=== PATIENT | female | born 1990 | race Caucasian/White ===

== ENCOUNTER 2017-10-11 07:39 | Outpatient (CLI) | payer OTHER ==
[~2017-10-11 07:39] MED LIST: MUCINEX
== END 2017-10-11 09:09 | disposition home or self-care (01) ==
LOC: LAB 07:39
DX: E78.1 Pure hyperglyceridemia (principal); E03.1 Congenital hypothyroidism without goiter; E10.9 Type 1 diabetes mellitus without complications; R35.8 Other polyuria

== ENCOUNTER 2019-03-31 11:55 | Emergency (ER) | payer OTHER ==
[~2019-03-31] VITALS: Ht 167.6 cm; Wt 62.6 kg
== END 2019-03-31 14:51 | disposition home or self-care (01) ==
LOC: ER 11:55
DX: S80.01XA Contusion of right knee, initial encounter (principal); S50.02XA Contusion of left elbow, initial encounter; S50.01XA Contusion of right elbow, initial encounter; W18.39XA Other fall on same level, initial encounter; Y93.89 Activity, other specified; Y92.89 Other specified places as the place of occurrence of the external cause; Y99.8 Other external cause status

== ENCOUNTER 2021-02-07 01:59 | Inpatient (IN) | payer OTHER ==
[~2021-02-07] VITALS: Ht 167.6 cm; Wt 68.9 kg
[2021-02-07] MEDS ORDERED: PRENATAL TABLE1 EAC1 PO (02:55)
== END 2021-02-09 14:13 | disposition home or self-care (01) | DRG 807 ==
LOC: SURG-SUITE 01:59 → LDR 01:59 → SURG-SUITE 11:08
PROVIDERS: ADMIT Specialist; ATTEND Specialist
PROC: 10E0XZZ Delivery of Products of Conception, External Approach (ICD-10-PCS; principal; 2021-02-07)
PROC: 0W8NXZZ Division of Female Perineum, External Approach (ICD-10-PCS; 2021-02-07)
PROC: 4A1HXFZ Monitoring of Products of Conception, Cardiac Rhythm, External Approach (ICD-10-PCS; 2021-02-07)
DX: O80 Encounter for full-term uncomplicated delivery (principal); Z37.0 Single live birth; Z3A.38 38 weeks gestation of pregnancy; Z20.822 Contact with and (suspected) exposure to COVID-19